=== PATIENT | female | born 1980 | race Caucasian/White ===

== ENCOUNTER 2019-11-03 13:35 | Emergency (ER) | payer BC, OTHER, SELFPAY ==
[2019-11-03 13:44] VITALS: BP 131/72; PULSE 105; RESP 18; TEMP 36.7; O2SAT 98; BMI 31.8
--- NOTE | 2019-11-03 13:45 | DI.RAD.S_ITS ---
PROCEDURE: XR ANKLE RT MIN 3V INDICATIONS: fall last night TECHNIQUE: 3 views of the ankle were acquired. COMPARISON: None. FINDINGS: Bones: Ossific densities seen on the AP view lateral to the cuboid are likely a chronic finding. No other fractures or dislocations. No fractures or dislocations. Ankle mortise is normally aligned. No suspicious bony lesions. Soft tissues: No tibiotalar joint effusion. Achilles tendon appears normal. Lateral soft tissue swelling. IMPRESSION: Ossific densities seen on the AP view lateral to the cuboid are likely a chronic finding and not an acute fracture. However, correlation with physical exam is suggested. No other fractures or dislocations seen. Dictated by: Remy Irwin M.D. on 11/03/2019 at 14:10 Approved by: Remy Irwin M.D. on 11/03/2019 at 14:12
--- NOTE | 2019-11-03 13:50 | ED_ITS ---
HPI - Extremity Injury (Lower) General Chief Complaint: Extremity Injury, Lower Stated Complaint: Fell yesterday and hurt right ankle Time Seen by Provider: 11/03/19 13:36 Source: patient Mode of arrival: Family Vehicle Limitations: no limitations History of Present Illness HPI Narrative: Patient is a 39-year-old female presents with right ankle pain and swelling. She off a curb last night. She is no longer able to ambulate on it. No other injury. She took 3 Tylenol 3 last night without any pain relief and took ibuprofen then as well Related Data Allergies Allergy/AdvReac Type Severity Reaction Status Date / Time Penicillins Allergy Verified 11/03/19 13:49 Review of Systems Review of Systems Narrative: GENERAL: Denies chills,fever HEENT: Denies throat pain RESPIRATORY: Denies dyspnea, cough, wheezing CARDIOVASCULAR: Denies chest pain, palpitations GASTROINTESTINAL: Denies nausea, vomiting MUSCULOSKELETAL: See HPI SKIN: No rash, no laceration, no pruritus NEUROLOGIC: Denies weakness, dizziness, headache, numbness 8 point review of systems is negative except for those stated above and HPI Patient History Medical History Depression (Acute) Epilepsy (Acute) Hyperlipidemia (Acute) Social History Smoking Status: Current every day smoker Smoking Status: Current every day smoker tobacco type: cigarettes alcohol intake frequency: a few times a month Substance Use Type: marijuana Exam Initial Vital Signs Initial Vital Signs: Vital Signs Temperature 98.1 F 11/03/19 13:44 Pulse Rate 105 H 11/03/19 13:44 Respiratory Rate 18 11/03/19 13:44 Blood Pressure 131/72 11/03/19 13:44 Pulse Oximetry 98 11/03/19 13:44 GENERAL: Well-appearing, well-nourished and in no acute distress. CARDIOVASCULAR: peripheral pulses in tact, cap refill <2 sec RESPIRATORY: No respiratory distress, speaks in full sentences without difficulty EXTREMITIES: Normal range of motion, no clubbing or edema. Neurovascularly intact Right ankle swelling distal pedal pulse present no Achilles tenderness, knee is stable NEUROLOGICAL: Cranial nerves II through XII grossly intact. Normal gait and speech. SKIN: Warm, dry, no petechiae, no rashes or lesions. Course Orders Ordered: ED Orders 11/03/19 13:45 XR ankle RT min 3V Stat Discontinued Medications Ibuprofen (Advil) 800 mg PO NOW ONE Stop: 11/03/19 13:46 Last Admin: 11/03/19 13:55 Dose: 800 mg Documented by: LUZ Vital Signs Vital signs: Vital Signs - 8 hr 11/03/19 13:44 11/03/19 14:43 Temperature 98.1 F Pulse Rate 105 H 98 H Respiratory Rate 18 14 Blood Pressure 131/72 125/70 Pulse Oximetry 98 97 Discharge Plan Departure Patient Disposition: Home Clinical Impression: Right ankle sprain Qualifiers: Encounter type: initial encounter Involved ligament of ankle: other ligament Qualified Code(s): S93.491A - Sprain of other ligament of right ankle, initial encounter Discharge Date/Time: 11/03/19 14:43 Instructions: Ankle Sprain Activity Restrictions/Additional Instructions: *You have been diagnosed with right ankle sprain *What to do: Use crutches as needed, increase weight-bearing as tolerated, elevate, ice Your x-ray does look like you have an old fracture on 1 of your bones. Today's x-ray does not show any new fracture *Continue to take medications as directed Ibuprofen 800 mg every 8 hours if needed for pain *Follow up with your primary care provider in 2-3 days *Return to ER if you should have increased pain, numbness, weakness or any new, worsening or concerning symptoms Referrals: [facility] [Outside]
[2019-11-03] MEDS: IBUPROFEN 400 MG TABLET 800 MG PO (13:55)
[2019-11-03 14:43] VITALS: BP 125/70; PULSE 98; RESP 14; O2SAT 97
== END 2019-11-03 14:43 | disposition home or self-care (01) ==
PROVIDERS: Emergency Provider Emergency Medicine
DX: S93.491A Sprain of other ligament of right ankle, initial encounter (principal); W19.XXXA Unspecified fall, initial encounter
CPT/HCPCS: 73610; 99283